=== PATIENT | female | born 1995 ===

== ENCOUNTER 2022-04-15 12:37 | Emergency (ER) | payer OTHER ==
[2022-04-15 13:34] VITALS: BP 139/89
== END 2022-04-16 06:07 | disposition left against medical advice (07) ==
LOC: ED 12:37
DX: S09.90XA Unspecified injury of head, initial encounter (principal); W22.8XXA Striking against or struck by other objects, initial encounter; Y93.89 Activity, other specified; Y92.89 Other specified places as the place of occurrence of the external cause; Y99.8 Other external cause status